=== PATIENT | female | born 1980 ===

== ENCOUNTER 2022-04-05 15:17 | Outpatient (CLI) | payer OTHER ==
--- NOTE | 2022-04-05 16:13 | XRAY Report ---
PROCEDURE: Shoulder 3 View RT INDICATIONS: RIGHT SHOULDER PAIN TECHNIQUE: 4 views of the shoulder were acquired. COMPARISON: None. FINDINGS: Bones: No fractures or dislocations. No suspicious bony lesions. Visualized ribs appear intact. M ild acromioclavicular and glenohumeral joint degenerative changes. Soft tissues: No suspicious soft tissue calcifications. IMPRESSION: No acute osseous abnormality. If symptoms persist, follow-up radiographs and/or CT or MR I may be helpful for further evaluation. Reviewed by: Antolin Jensen MD on 04/05/2022 4:12 PM PST Approved by: Antolin Jensen MD on 04/05/2022 4:12 PM PST Station ID: [id number]
== END 2022-04-05 15:21 | disposition home or self-care (01) ==
LOC: DI.WOS 15:17
PROVIDERS: ATTEND Orthopaedic Surgery
DX: M25.511 Pain in right shoulder (principal)

== ENCOUNTER 2022-07-21 10:14 | Emergency (ER) | payer OTHER ==
[2022-07-21 10:30] VITALS: BP 118/68
--- NOTE | 2022-07-21 10:38 | ED Physician Documentation ---
PD HPI LOWER EXT INJURY - Stated complaint Stated Complaint: RT ANKLE INJ - Chief complaint Chief Complaint: Trauma Ext - History obtained from History obtained from: Patient - History of Present Illness PD HPI LOW EXT INJURY LOCATION: Right, Ankle Type of injury: Twist Where injury occurred: Home Timing - onset: Last night Timing - details: Abrupt onset, Still present Worsened by: Moving (walking) Associated symptoms: Swelling, Discolored Similar symptoms before: Has not had sx before Review of Systems Skin: denies: Abrasion (s), Laceration (s) Neurologic: denies: Focal weakness, Numbness PD PAST MEDICAL HISTORY - Present Medications Home Medications: Ambulatory Orders Medication Instructions Recorded Confirmed No Known Home Medications 07/21/22 07/21/22 - Allergies Allergies/Adverse Reactions: Allergies Allergy/AdvReac Type Severity Reaction Status Date / Time No Known Drug Allergies Allergy Verified 07/21/22 10:26 PD ED PE NORMAL - Vitals Vital signs reviewed: Yes - General General: Alert and oriented X 3, No acute distress, Well developed/nourished - Derm Derm: Normal color, Warm and dry - Extremities Extremities: Other (right anterolateral proximal foot with swellling and some bruising. Tenderr. No noted laxity with inversion but limited by discomfort. ) Results - Vitals Vitals: Vital Signs - 24 hr 07/21/22 10:24 Temperature 36.7 C Heart Rate 79 Respiratory 15 Rate Blood Pressure 118/68 O2 Saturation 97 Oxygen O2 Source Room air - Rads (name of study) right ankle/foot Relevant Findings:: Prelim report reviewed, EMP independent interpretation of test (no fractures. ), See rad report PD Medical Decision Making - ED course Complexity details: considered differential (ankle sprain with bruisinng/tender at area of ATFL ligament. ), d/w patient Departure - Departure Disposition: Home, Self Care Clinical Impression: Sprain of right foot Qualifiers: Encounter type: initial encounter Qualified Code(s): S93.601A - Unspecified sprain of right foot, initial encounter Condition: Stable Record reviewed to determine appropriate education?: Yes Instructions: ED Sprain Ankle W X Ray Follow-Up: Orthopedic Care [Provider Group] Comments: Your x-ray appears normal, so no signs of fractures. Muscles and ligaments do not show up on these and clinically you obviously have a sprain of the ankle/foot, the attachment of the ankle ligaments and muscles. This should improve over time but may take a week or 2. Support the ankle with the ankle brace when up and around for the next 1 to 3 weeks until fully better. Initially use crutches for partial to no weightbearing as needed for comfort. Progress weightbearing as tolerated. Elevate rest and ice the foot often today to reduce the amount of swelling that will develop. For pain use ibuprofen 2 or 3 times daily with food for the next several days to week and add Tylenol every 4-6 hours if needed. Activity as tolerated over the next several days and progress as tolerated. Follow-up with your primary care or orthopedics if not improving steadily over the next week and resolved by a couple of weeks. Discharge Date/Time: 07/21/22 11:20
[2022-07-21] MEDS ORDERED: IBUPROFEN 600 MG TABLET PO STA (10:54)
--- NOTE | 2022-07-21 11:45 | XRAY Report ---
PROCEDURE: Ankle 3 View RT INDICATIONS: Trauma TECHNIQUE: 3 views of the ankle were acquired. COMPARISON: None. FINDINGS: Bones: No fractures or dislocations. Ankle mortise is normally aligned. No suspicious bony lesions . Soft tissues: No tibiotalar joint effusion. Achilles tendon appears normal. IMPRESSION: No acute bony abnormality. Reviewed by: Linda Mata MD on 07/21/2022 10:44 AM JOSE J Approved by: Linda Mata MD on 07/21/2022 10:44 AM JOSE J Station ID: [id number]
== END 2022-07-21 11:20 | disposition home or self-care (01) ==
LOC: ED 10:14
DX: S93.601A Unspecified sprain of right foot, initial encounter (principal); X50.1XXA Overexertion from prolonged static or awkward postures, initial encounter
CPT/HCPCS: 73610; 99283; A9270